=== PATIENT | female | born 1935 | race Hispanic/Latino ===

== ENCOUNTER 2020-02-02 09:53 | Outpatient (CLI) | payer MEDICARE ==
[2020-02-02 12:29] LABS: INR 8.66 (0.87-1.13)
== END 2020-02-02 09:54 | disposition home or self-care (01) ==
LOC: LAB 09:53
PROVIDERS: ATTEND Family Medicine
DX: I82.419 Acute embolism and thrombosis of unspecified femoral vein (principal)
CPT/HCPCS: 36415; 85610